=== PATIENT | male | born 1960 | race Caucasian/White ===

== ENCOUNTER 2021-07-12 19:06 | Emergency (ER) | payer SELFPAY ==
[~2021-07-12] VITALS: Ht 177.8 cm; Wt 97.5 kg
[2021-07-12 19:09] VITALS: BP 187/107
--- NOTE | 2021-07-12 19:19 | NUR ---
PT AMB TO BED 8.
--- NOTE | 2021-07-12 19:30 | NUR ---
60 YO/M BIB SELF W C/O COTTON FROM Q-TIP STUCK IN L EAR FOR A COUPLE HOURS, S/P CLEANING EAR W Q-TIP. PATIENT DENIES ANY PAIN OR HEARING LOSS. PATIENT SPEAKING IN CLEAR SENTENCES AND ANSWERING QUESTIONS APPROPRIATELY. ERMD AT BEDSIDE, EXTRACTED COTTON FROM L EAR AT THIS TIME. PATIENT LAYING IN BED LOCKED IN LOWEST POSITION, X1 SIDERAIL UP. BREATHING EVEN AND UNLABORED. BP AT 108/107 ERMD AWARE. PMH: HTN, DIABETES NKA
[2021-07-12 20:04] VITALS: BP 134/84
--- NOTE | 2021-07-12 20:04 | NUR ---
Patient discharged with v/s stable. Written and verbal after care instructions given and explained FORE[employer] BODY. Patient verbalized understanding. Ambulatory with steady gait. All questions addressed prior to discharge. Advised to follow up with PMD.
== END 2021-07-12 20:04 | disposition home or self-care (01) ==
LOC: MED 19:06
DX: T16.2XXA Foreign body in left ear, initial encounter (principal); E11.9 Type 2 diabetes mellitus without complications; I10 Essential (primary) hypertension; X58.XXXA Exposure to other specified factors, initial encounter; Y93.89 Activity, other specified; Y92.89 Other specified places as the place of occurrence of the external cause; Y99.8 Other external cause status
CPT/HCPCS: 69200; 99284